=== PATIENT | male | born 1965 | race Caucasian/White ===

== ENCOUNTER → 2017-06-15 | Outpatient (CLI) | payer BC ==
[~2017-06-15] MED LIST: CA C1TAB62 PO; CETI10TA22 PO; IBUP-1060 PO; IOHEXOL 180 MG/ML 10 ML VIAL. ONE; MULT1TAB52 PO; OMEP20CA9 PO; VITA1TAB19 PO; [UNRECOGNIZED DRUG - CODE] SQ; methylPREDNISolone ACETATE 40 MG/ML VIAL. ONE; methylPREDNISolone ACETATE 80 MG/ML VIAL. ONE
--- NOTE | 2017-06-15 10:38 | PAIN ---
DATE OF SERVICE: 06/15/2017 INITIAL CONSULTATION FOR PAIN CLINIC CHIEF COMPLAINT: Low back and left lower extremity pain. HISTORY OF PRESENT ILLNESS: This is a 52-year-old male who presents with history of pain in the low back and lower extremities for about 10 years on total, worse since 2012 and over the last 3 months, becoming more constant. The patient reports his mid upper back has gotten somewhat better, but the pain in the low back is significantly painful with radiation of pain to the lower extremities, worse on the left than the right, radiating into the posterior gluteus, posterolateral thigh, lateral anterior medial thigh, medial lower leg, lateral lower leg and into the foot and toes on the left as well as the right. The patient reports into the great toe as well as into the medial leg, calf and groin on the left side, becoming more noticeable. It is tingling, numbness, shooting, sharp, constant pain, burning, aching and cold sensation as well in the leg. The patient reports it awakens him from sleep several times at night and he has difficulty sleeping and he has to change positions to get back to sleep. He reports it does affect his ability to walk. Significantly, he is not using any assistive devices such as canes or walkers to ambulate, however. The patient reports no loss of bladder or bowel incontinence, but some increased urgency with the pain at its worst. The patient has tried physical therapy, also chiropractic treatments. He is doing exercise currently. He still doing some stretches, which any of these have not decreased the pain significantly. The patient has tried ibuprofen, Tylenol and Contrave, which did help temporarily. The patient reports no motor loss, but significant fatigability in the left lower extremity compared to the right with walking, standing, changing positions, better with sitting, better with lying down. The patient reports his disability rate from 0-10, 10 being the worst ; 8 with family and home responsibilities, recreation and social activity; 9 with occupation and sexual behavior; 7 with self care and 6 with life support activities. PAST MEDICAL HISTORY: Significant for gastroesophageal reflux, sleep apnea, asthma, hearing loss, previous patent foramen ovale with repair in 2007, TIAs prior to that, arthritis and carpal tunnel syndrome. PAST SURGICAL HISTORY: Previous surgeries includes sinus surgery x 4, tonsillectomy, anal fissure repair, varicose vein stripping on the left leg, tear duct surgery, right rotator cuff repair and CardioSEAL patch for foramen ovale. CURRENT MEDICATIONS: Complete and well documented on the patient's chart. ALLERGIES: The patient has no known drug allergies. FAMILY HISTORY: Significant for arthritis. SOCIAL HISTORY: The patient does not smoke, does not drink alcohol, is , lives with his spouse and lives locally in [place], [place]. REVIEW OF SYSTEMS: The patient's review of systems is positive for those items mentioned in the history of present illness. All systems were reviewed and otherwise negative. It is complete and well documented on the patient's chart. PHYSICAL EXAMINATION: VITAL SIGNS: Today, the patient's blood pressure is 125/86, pulse 74, respirations 16 and temperature 97.7 degrees Fahrenheit. Height is 5 feet 7 inches. Weight is 278 pounds. GENERAL: The patient is awake, alert, oriented, appropriate, has a very pleasant demeanor. HEENT: Head shows normocephalic, atraumatic. Extraocular movements are intact and symmetrical. Oral cavity shows mucous membranes moist and pink. Dentition is intact. NECK: Shows anterior throat supple, without palpable lymphadenopathy noted. Swallow reflex is symmetrical. CHEST: Shows normal on inspection. Breath sounds clear to auscultation bilaterally. HEART: Shows S1 and S2 clear. No murmurs auscultated. ABDOMEN: Obese, soft, nontender and nondistended. No palpable organomegaly. No rebound or guarding demonstrated. BACK: Shows spine grossly in the midline. Slight exaggeration of thoracic kyphosis and mild flattening of the lumbar lordotic curvature. No previous bruises, lesions, rashes or scars are noted. The patient's lumbar paraspinous muscle shows some symmetry with inspection and palpation. It shows some moderate tenderness bilaterally in the low and mid lumbar distribution bilaterally without radiation, without trigger points. No tenderness over the spinous processes. No tenderness over the sacrum or sacroiliac regions. The patient has good rotation and motion both laterally, right and left, as well as extension greater than 10 degrees, forward flexion 45 degrees without pain reported. LOWER EXTREMITIES: Show deep tendon reflexes at 2+ in the patellar, 1+ tendo-calcaneus. Tendons are equal. Motor exam is strong with 5/5 dorsiflexion, extension, quadriceps and hamstring flexion and equal bilaterally. Peripheral pulses are 1+ posterior tibial and dorsalis pedis pulses. No peripheral edema is noted. No clubbing, no cyanosis. Lower extremities are warm and dry to touch, equal in color and appearance. Straight leg raise noted to be positive on the left at about 40 degrees, negative on the right. Gaenslen's and Baljeet's maneuvers are negative bilaterally. Straight leg raise is decreased pain with knee flexion on the left side. The patient is able to stand, stand on his toes without significant difficulty or loss of balance. He is able to ambulate without significant difficulty. No specific favoring right or left lower extremity on a short walk in the office today. He does not use any assistive devices to ambulate. DIAGNOSTIC STUDIES: MRI scan of the lumbar spine, dated 07/12/2016, shows L3-L4 with disk osteophyte complex in a superimposed shallow extrusion extending very slightly below the intervertebral disk space centrally into the left lateral recess, mild left lateral recess stenosis, posterior annular tear, very mild narrowing of the inferior left neural foramen and right neural foramen is adequate. L4-L5 shows very mild narrowing of the inferior neural foramina bilaterally, greater on the right. L5-S1 shows mild neural foraminal compromise, greatest on the right as well. IMPRESSION: 1. This is a 52-year-old male with long history, about 10 years, of increasing pain in low back and into the bilateral left greater than right lower extremity, worse over the past 3 months, without specific injury or accident cited. 2. Arthritis. 3. Obesity. 4. Sleep apnea. PLAN: Options were discussed with the patient including conservative medical management, physical therapies, interventional techniques and he would like to pursue interventional techniques. We discussed a lumbar epidural steroid injection using description as well as anatomical models to describe the procedure. Risks were then discussed, including but not limited to bleeding, infection, possibility of epidural hematoma and subsequent neurologic compromise, dural puncture, headaches, spinal cord and/or nerve damage, side effects of steroid medication and poor results regarding pain control. The patient understands and wishes to proceed. The patient will return to clinic in approximately 2 weeks for followup. He was counseled on return appointment, activity level and side effects to be aware of. DIAGNOSES: Lumbar radiculopathy with lumbar degenerative disk disease and lumbar herniated disk. PROCEDURE: Lumbar epidural steroid injection in translaminar approach at L3-L4 level using C-arm fluoroscopic guidance under sterile prep and drape using local anesthetic. MEDICATION INJECTED: A total of 120 mg of Depo-Medrol plus 10 mL of preservative-free normal saline and 2 mL of Isovue for contrast. CONDITION AT DISCHARGE: Stable. The patient tolerated the procedure well, had no complications. AB WHITE MD DR: CORIE/arnav JOB#: [id number] / [id number] Susan Azevedo
== END | disposition home or self-care (01) ==
LOC: PNCL 07:44
PROVIDERS: ATTEND Anesthesiology
DX: M51.16 Intervertebral disc disorders with radiculopathy, lumbar region (principal); M19.90 Unspecified osteoarthritis, unspecified site; E66.9 Obesity, unspecified; G47.30 Sleep apnea, unspecified
CPT/HCPCS: 62323; J1030; J1040

== ENCOUNTER → 2017-06-29 | Outpatient (CLI) | payer BC ==
--- NOTE | 2017-06-29 09:18 | PAIN ---
DATE OF SERVICE: 06/29/2017 DIAGNOSIS: Lumbar radiculopathy with lumbar degenerative disk disease and lumbar herniated disk. HISTORY OF PRESENT ILLNESS: The patient is a 52-year-old male who returns for followup status post lumbar epidural steroid injection x 1. The patient reports about 20% improvement overall in his low back and left lower extremity. Still some pain persisting, notices better with the shooting pain is less intense in the left leg, but still present mostly in lateral, anterior, and medial thigh on the left side. The patient reports it is an 8 on a scale of 10 at its worst, 7 on average, is a 5 on a scale of 10 at least, and is a 5 today. The patient reports it is a tingling, burning, sharp and aching, sometimes shooting, but the shooting has decreased significantly. The patient reports it still wakes him from sleep occasionally, but not every night. He can reposition, usually get out of the bed and get back to sleep without difficulty. The patient still has some burning and tingling sensation in the back and leg. He has been doing some water therapy, swimming and walking in the pool every day on average and feels this is quite beneficial as he has almost no pain when he is in the pool, walking, and exercising. PHYSICAL EXAMINATION: VITAL SIGNS: Today, the patient's blood pressure 144/83, pulse 68, respirations 16, temperature 98.3 degrees Fahrenheit, height is 5 feet 7 inches, weight is 277 pounds. GENERAL: The patient is awake, alert, oriented, appropriate, very pleasant demeanor. HEENT: Shows head is normocephalic, atraumatic. Extraocular movements are intact, symmetrical. Oral cavity, mucous membranes are moist and pink. Dentition is intact. NECK: Shows anterior throat supple without lymphadenopathy. CHEST: Shows normal on inspection. Breath sounds are clear to auscultation bilaterally. HEART: Shows S1 and S2 clear. ABDOMEN: Soft, nontender, nondistended. No palpable organomegaly. No rebound or guarding demonstrated. BACK: Shows spine grossly midline. Lumbar paraspinous musculature shows symmetrical on inspection with palpation. It shows some [id number] tenderness with palpation in the middle and lower distribution of paraspinous muscles, but only diffusely without radiation. No tenderness on palpation of the spinous processes over the sacrum or sacroiliac regions. The patient has good rotation and motion of the lumbar spine, both laterally as well as extension and flexion without significant pain or difficulty. EXTREMITIES: Lower extremities showed deep tendon reflexes at 2+ in the patella, 1+ tendo calcaneus tendons and are equal. Motor exam is strong with 5 dorsiflexion, extension, quadriceps and hamstring flexion. Options were discussed with the patient. The patient's old chart was reviewed as his current medication regimen and updated. Current review of systems is updated today as well. We will proceed with the second lumbar epidural steroid injection today with fluoroscopic guidance. Risks were again discussed including, but not limited to bleeding, infection, possibility of epidural hematoma, subsequent neurologic compromise, dural puncture, headaches, spinal cord and/or nerve damage, side effects of steroid medication and poor results regarding pain control. The patient understands and wished to proceed. The patient will return to the clinic in approximately 2 weeks for followup, was counseled on return appointment, activity level and side effects to be aware of. DIAGNOSIS: Lumbar radiculopathy with lumbar degenerative disk disease and lumbar herniated disk. PROCEDURE: Lumbar epidural steroid injection, translaminar approach at the L3-L4 level using C-arm fluoroscopic guidance under sterile prep and drape using local anesthetic. Medication injected is total of 120 mg Depo-Medrol plus 10 mL of preservative-free normal saline, and 2 mL of Isovue for contrast. CONDITION ON DISCHARGE: Stable. The patient tolerated the procedure well, had no complications. AB WHITE MD DR: CORIE/arnav JOB#: [id number] / [id number]
== END | disposition home or self-care (01) ==
LOC: PNCL 07:29
PROVIDERS: ATTEND Anesthesiology
DX: M51.16 Intervertebral disc disorders with radiculopathy, lumbar region (principal)
CPT/HCPCS: 62323; J1030; J1040

== ENCOUNTER → 2017-07-24 | Outpatient (CLI) | payer BC ==
[~2017-07-24] MED LIST changes: -IOHEXOL 180 MG/ML 10 ML VIAL. ONE; -methylPREDNISolone ACETATE 40 MG/ML VIAL. ONE; -methylPREDNISolone ACETATE 80 MG/ML VIAL. ONE
--- NOTE | 2017-07-24 21:20 | PAIN ---
DATE OF SERVICE: 07/24/2017 DIAGNOSES: Lumbar radiculopathy with lumbar degenerative disk disease, lumbar herniated disk. HISTORY OF PRESENT ILLNESS: The patient is a 52-year-old male who returns for followup status post lumbar epidural steroid injections x 2. The patient reports no significant improvement after last injection, still significant pain in the low back and left leg, some in the right hip and leg posteriorly, but mostly in the anterolateral thigh on the left side, which has been getting worse with time. The patient reports it is becoming more weak and giving out on him where he is having some stumbling, but no falls with pain in the left leg. The patient reports it is a tingling, burning, cramping, stabbing, shooting, aching and sharp alternating. Pain is worst is a 9 on a scale of 10, an 8 on average, is a 7 on a scale of 10 at its least and is a 7 today. The patient reports no new motor or sensory deficits, no new bowel or bladder incontinence. Did have an MRI scan performed after his last visit showing some multilevel degenerative change with a previously demonstrated disk extrusion at L3-L4, extraforaminal disk protrusions at L4-L5 as well as L5-L6. We discussed this with the patient today as well. The patient reports it has been awakening him from sleep at night again, has been sleeping about 4-5 hours at a time because the pain is disturbing his sleep as it did previously. PHYSICAL EXAMINATION: VITAL SIGNS: The patient's blood pressure is 131/86, pulse 74, respirations are 18, temperature is 98.0 degrees Fahrenheit. Height is 5 feet 7 inches, weight is 251 pounds. GENERAL: The patient is awake, alert, oriented, appropriate, very pleasant demeanor. HEENT: Shows normocephalic, atraumatic. Extraocular movements are intact and symmetrical. Oral cavity shows mucous membranes are moist and pink. Dentition is intact. NECK: Shows anterior throat supple without palpable lymphadenopathy noted. Swallow reflex is symmetrical. Neck shows full rotational motion of the cervical spine without difficulty. CHEST: Shows normal on inspection. Breath sounds are clear to auscultation bilaterally. HEART: Shows S1 and S2 clear. No murmurs auscultated. ABDOMEN: Obese, soft, nontender, nondistended. No palpable organomegaly is noted. No rebound or guarding demonstrated. MUSCULOSKELETAL: Back shows spine grossly in the midline. Normal appearing thoracic kyphosis and lumbar lordotic curvature. Lumbar paraspinous musculature shows some moderate tenderness with palpation, but is symmetrical on inspection. Mostly in the low lumbar distribution, only diffusely tender bilaterally without radiation. No tenderness over the sacrum or sacroiliac regions. The patient shows good rotational motion of the lumbar spine, both laterally as well as extension and flexion without significant difficulty. The patient's lower extremities show deep tendon reflexes 2+ in the patellar, 1+ tendo-calcaneus tendons. Motor exam is strong with 5/5 dorsiflexion, extension, quadriceps and hamstring flexion and equal bilaterally. Peripheral pulses are 1+ posterior tibial and dorsalis pedis pulses. No peripheral edema is noted. No clubbing, no cyanosis. PLAN: Options were discussed with the patient and the patient's old chart was reviewed as his current medication regimen and updated. Current review of systems updated today as well. We will refer the patient for neurosurgical evaluation as he has had physical therapy both standard physical therapy and water therapy as well as chiropractic treatment, doing stretching and strengthening exercises and now 2 lumbar epidurals without significant improvement at least not long-term. The patient would like to explore any surgical alternatives. We will make the referral and get neurosurgical opinion. The patient in the meantime will continue activity and stretching and strengthening exercises to the best of his ability. We also discussed following up possibly for a third epidural injection if desired in the future. AB WHITE MD DR: CORIE/arnav JOB#: [id number] / [id number]
== END | disposition home or self-care (01) ==
LOC: PNCL 07:27
PROVIDERS: ATTEND Anesthesiology
DX: M51.16 Intervertebral disc disorders with radiculopathy, lumbar region (principal)
CPT/HCPCS: 99212

== ENCOUNTER 2017-09-05 08:23 | Outpatient (CLI) | payer BC ==
[2017-09-05] MEDS ORDERED: IOHEXOL 180 MG/ML 10 ML VIAL. IT ONE (08:30)
[2017-09-05 10:00] VITALS: BP 111/72
[2017-09-05 10:30] VITALS: BP 106/63
--- NOTE | 2017-09-05 10:53 | RAD ---
Lumbar myelogram, 09/05/2017: History: Lumbar radiculopathy Under local anesthesia, aseptic conditions and fluoroscopic guidance a lumbar puncture was performed at the mid L3 level utilizing a 25-gauge Tin spinal needle. Note is made of a transitional-type vertebrae at the lumbosacral junction which will be considered to be L6 for consistency with the 07/20/2017 MR exam. CSF flow was obtained following which 14 cc of Omnipaque 180 was injected into the thecal sac. The spinal needle was then removed and hemostasis obtained. Appropriate digital imaging was performed. 3.6 minutes of fluoroscopy time was utilized. 12 fluoroscopic spot images were recorded. The patient tolerated the procedure well and was sent to CT in good condition. The following findings are delineated on the myelogram: 1. At L4-5 there is a moderate anterior extradural defect and a mild posterior extradural defect producing mild central spinal stenosis in the upright position. The thecal sac measures 6-7 mm in AP diameter. No significant instability was seen on upright flexion and extension views. 2. There is a moderate anterior extradural defect and a minimal posterior extradural defect at L3-4 producing a lesser degree of mild central spinal stenosis in the upright position. The thecal sac measures 7-8 mm in AP diameter. 3. Mild anterior extradural defects are present at L1-2, L2-3 and L5-6. 4. There is symmetric filling of the root sleeves in the lower lumbar spine. CT of the lumbar spine-post myelogram, 09/05/2017: Multidetector CT imaging was performed following the patient's lumbar myelogram with multiplanar reconstructions produced. The following findings are delineated: 1. There are 6 lumbar type vertebral bodies and for purposes of these reports the lowest clear disc space is considered to be L6-S1. 2. At L1-2 there is only slight posterior annular bulging. The central spinal canal and neural foramina are well maintained. 3. At L2-3 there is mild posterior disc bulging which is most prominent laterally on the left. This is causing mild narrowing of the inferior aspect of the left neural foramen. The central spinal canal is well-preserved. 4. At L3-4 there is mild posterior marginal spurring and mild broad-based posterior disc bulging. There are mild degenerative changes involving the facet joints. The central spinal canal is well-preserved measuring 11 mm in AP diameter in the supine position for the CT images. There is mild inferior foraminal narrowing on the left. 5. At L4-5 there is mild posterior spurring and disc bulging. There are mild degenerative changes involving the facet joints with posterior ligamentous thickening. The thecal sac measures 11 mm in AP diameter at the midline. There is moderate inferior foraminal encroachment bilaterally. 6. At L5-L6 there is moderate broad-based posterior disc bulging. There are mild degenerative changes involving the facet joints with mild posterior ligamentous thickening. The central spinal canal is not significantly narrowed. There is moderate foraminal encroachment more so on the right. 7. At L6-S1 there is moderate posterolateral marginal spurring, more so on the right. There are mild degenerative changes involving the facet joints. The spurring is causing mild narrowing of the mid portions of the neural foramina bilaterally without significant encroachment upon the nerve root sleeves. The central spinal canal is well maintained. IMPRESSION: 1. 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 2. Mild multilevel degenerative changes as described above. 3. Mild associated central spinal stenosis at L4-5 and to a lesser degree at L3-4 in the upright position. PQRS Compliance Statement: One or more of the following individualized dose reduction techniques were utilized for this examination: 1. Automated exposure control 2. Adjustment of the mA and/or kV according to patient size 3. Use of iterative reconstruction technique
== END 2017-09-05 10:30 | disposition home or self-care (01) ==
LOC: RAD 08:23
PROVIDERS: ATTEND Neurological Surgery
DX: M51.16 Intervertebral disc disorders with radiculopathy, lumbar region (principal); M48.061 Spinal stenosis, lumbar region without neurogenic claudication
CPT/HCPCS: 72132; 72265

== ENCOUNTER → 2021-05-09 | Outpatient (CLI) | payer BC ==
[~2021-05-09] MED LIST changes: -CETI10TA22 PO; +CETI10TA74 PO; +MULT-445 PO; -MULT1TAB52 PO; +OMEP20CA16 PO; -OMEP20CA9 PO
--- NOTE | 2021-05-09 16:54 | KCIC ---
EXAM: Chest CT without intravenous contrast. HISTORY: Abnormal chest radiograph. Right paravertebral soft tissue lesion. TECHNIQUE: Computed tomographic images of the chest were obtained without contrast. Multiplanar refor matting was performed. *One or more of the following individualized dose reduction techniques were utilized for this examina tion: 1. Automated exposure control. 2. Adjustment of the mA and/or kV according to patient size. 3. Use of iterative reconstruction technique. COMPARISON: None. FINDINGS: The heart is normal in size. There is trace pericardial fluid. There is an atrial septal cl osure device in expected position. There are few calcified mediastinal and hilar granulomas. There ar e few nonspecific noncalcified mediastinal and hilar lymph nodes. These are likely physiologic. There is no convincing lymphadenopathy. The graft there is no pneumothorax or pleural effusion. There is n o infiltrate or suspicious pulmonary nodule. There are degenerative changes involving the thoracic sp ine. There are bulky bridging and partially bridging right anterior osteophytes at the mid lower thor acic levels. IMPRESSION: 1. No acute thoracic finding. 2. No suspicious pulmonary nodule. 3. Trace pericardial fluid and nonspecific mediastinal and hilar lymph nodes, the latter which are li leny physeal in etiology. Electronically signed by: Judy Caldwell MD (05/09/2021 4:51 PM) [id number]
== END ==
LOC: KCIC CT 14:44
PROVIDERS: ATTEND Physician Assistant
DX: M89.9 Disorder of bone, unspecified (principal); M25.78 Osteophyte, vertebrae; M47.814 Spondylosis without myelopathy or radiculopathy, thoracic region
CPT/HCPCS: 71250